=== PATIENT | female | born 1995 | race African-American/Black ===

== ENCOUNTER 2025-06-13 14:17 | Emergency (ER) | payer OTHER ==
[~2025-06-13] VITALS: Ht 160 cm; Wt 54.0 kg
[2025-06-13 14:21] VITALS: TEMP 37; O2SAT 100
[2025-06-13 14:45] LABS: COLOR URINE YELLOW (YELLOW); GLUCOSE URINE NEGATIVE (NEGATIVE); KETONES URINE NEGATIVE (NEGATIVE); LEUKOCYTE ESTERASE URINE 1+ (NEGATIVE); NITRITE URINE POSITIVE (NEGATIVE); OCCULT BLOOD URINE 3+ (NEGATIVE); PH URINE 7.5 (4.5-8.0); PROTEIN URINE NEGATIVE (NEGATIVE); SPECIFIC GRAVITY URINE 1.007 (1.005-1.030); UROBILINOGEN URINE 1.0 E.U./dL (0.2-1.0)
[2025-06-13 14:49] LABS: *AMPHETAMINES SCREEN URINE NEGATIVE (NEGATIVE); *BARBITURATES SCREEN URINE NEGATIVE (NEGATIVE); *BENZODIAZEPINES SCREEN URINE NEGATIVE (NEGATIVE)
[2025-06-13 14:50] LABS: *COCAINE SCREEN URINE NEGATIVE (NEGATIVE); CANNABINOID URINE SCREEN PRESUMPTIVE POSITIVE (NEGATIVE); ECSTASY MDMA SCREEN URINE NEGATIVE (NEGATIVE); METHADONE URINE SCREEN NEGATIVE (NEGATIVE); OPIATES URINE SCREEN NEGATIVE (NEGATIVE); PHENCYCLIDINE URINE SCREEN NEGATIVE (NEGATIVE)
[2025-06-13 15:06] VITALS: BP 143/98; PULSE 100; RESP 19; O2SAT 95
[2025-06-13 15:11] LABS: CLARITY URINE HAZY (CLEAR)
[2025-06-13 15:12] LABS: RBC URINE 50-100 /hpf (0-2)
[2025-06-13 15:13] LABS: BACTERIA URINE 2+; SQUAMOUS EPITHELIAL CELL URINE 2+ /lpf (RARE/1+); TRICHOMONAS URINE FEW
[2025-06-13 15:27] LABS: HEMATOCRIT. 32.2 % (36.0-48.0); HEMOGLOBIN. 10.0 g/dL (12.0-16.0); MEAN PLATELET VOLUME 8.8 fl (7.4-10.4); PLATELET 127 x1000/uL (130-400); RED BLOOD CELL COUNT 4.25 mill/uL (4.2-5.4); RED CELL DISTRIBUTION WIDTH 29.4 % (11.6-14.6)
[2025-06-13 15:40] LABS: CREATININE 0.8 mg/dL (0.6-1.0); UREA NITROGEN BLOOD < 5 mg/dL (9-23)
[2025-06-13 15:52] LABS: ETHANOL BLOOD 385 mg/dL (<10)
[2025-06-13] MEDS ORDERED: METR-167 MT (16:05)
[2025-06-13] MEDS ORDERED: METRONIDAZOLE 500MG TABLET PO ONE (16:15)
[2025-06-13 16:49] LABS: LYMPHOCYTES % MANUAL 41.0 % (20.0-60.0); MONOCYTES % MANUAL 7.0 % (2.0-8.0); NEUTROPHILS % MANUAL 52.0 % (45.0-75.0); PLATELET ESTIMATE DECREASED
[2025-06-13 17:17] LABS: HCG SCREEN NEGATIVE
== END 2025-06-13 16:13 | disposition home or self-care (01) ==
LOC: ER 14:17 → CMPBEDREQ 19:14
DX: O23.42 Unspecified infection of urinary tract in pregnancy, second trimester (principal); N39.0 Urinary tract infection, site not specified; R10.2 Pelvic and perineal pain; O98.312 Other infections with a predominantly sexual mode of transmission complicating pregnancy, second trimester; A59.9 Trichomoniasis, unspecified; O99.312 Alcohol use complicating pregnancy, second trimester; F10.129 Alcohol abuse with intoxication, unspecified; O10.912 Unspecified pre-existing hypertension complicating pregnancy, second trimester; O99.322 Drug use complicating pregnancy, second trimester; F15.90 Other stimulant use, unspecified, uncomplicated; Z3A.21 21 weeks gestation of pregnancy; Y90.8 Blood alcohol level of 240 mg/100 ml or more
CPT/HCPCS: 80305; 80048; 81003; 81025; 80320; 84703; 84702; 85025; 36415; 93005; 99284; Z7610; 99283; A4606; G0480